=== PATIENT | female | born 1980 | race Caucasian/White ===

== ENCOUNTER 2019-05-08 13:57 | Emergency (ER) | payer BC ==
[~2019-05-08] VITALS: Ht 154.9 cm; Wt 54.0 kg
[2019-05-08 14:06] VITALS: BP_SYST 109
[2019-05-08] MEDS ORDERED: KETOROLAC TROMETHAMINE 60 MG/2 ML VIAL IM ONE (14:45)
[2019-05-08 15:27] VITALS: BP_SYST 109
== END 2019-05-08 15:21 | disposition home or self-care (01) ==
LOC: SED 13:57
DX: S29.012A Strain of muscle and tendon of back wall of thorax, initial encounter (principal); R07.9 Chest pain, unspecified; X50.1XXA Overexertion from prolonged static or awkward postures, initial encounter; Y93.89 Activity, other specified; Y92.89 Other specified places as the place of occurrence of the external cause; Y99.8 Other external cause status
CPT/HCPCS: 71045; 81025; 93005; 99283; J1885

== ENCOUNTER 2019-08-15 09:29 | Emergency (ER) | payer BC ==
[~2019-08-15] VITALS: Ht 154.9 cm; Wt 45.4 kg
[2019-08-15 09:41] VITALS: BP_SYST 154
[2019-08-15 10:40] VITALS: BP_SYST 154
== END 2019-08-15 10:40 | disposition home or self-care (01) ==
LOC: SED 09:29
DX: F41.9 Anxiety disorder, unspecified (principal); R00.2 Palpitations; Z00-Z99 Factors influencing health status and contact with health services
CPT/HCPCS: 93005; 99283